=== PATIENT | male | born 1950 | race Asian ===

== ENCOUNTER 2016-08-21 20:25 | Inpatient (IN) | payer SELFPAY ==
[~2016-08-21] VITALS: Ht 177.8 cm; Wt 64.2 kg
[2016-08-21 21:03] LABS: Basophils # (auto) 0 uL; Basophils % (auto) 0.1 % (0.0-2.0); Eosinophils # (auto) 0 uL; Eosinophils % (auto) 0.2 % (0.0-7.0); Hematocrit 36.3 % (41.0-53.0); Hemoglobin 12.3 g/dL (13.5-17.5); Lymphocytes # (auto) 0.7 uL; Lymphocytes % (auto) 6.4 % (10.0-50.0); Mean Corpuscular Hemoglobin 29.6 pg (28.0-32.0); Mean Platelet Volume 8.3 fL (7.4-10.4); Monocytes # (auto) 0.6 uL; Monocytes % (auto) 5.1 % (0.0-12.0); Neutrophils # (auto) 9.8 uL; Neutrophils % (auto) 88.2 % (37.0-80.0); Platelet Count (auto) 236 10^3/uL (140-450); Red Cell Distribution Width 12.4 % (11.6-16.0); White Blood Cell 11.1 10^3/uL (4.4-10.8)
[2016-08-21 21:31] LABS: Albumin 2.3 g/dL (3.4-5.0); BUN/Creatinine Ratio 22.7; Bilirubin, Total 0.6 mg/dL (0.2-1.0); Calcium 8.8 mg/dL (8.5-10.1); Potassium 4.1 mmol/L (3.5-5.1); Total Protein 7.1 g/dL (6.4-8.2)
[2016-08-22] MEDS ORDERED: ONDANSETRON HCL 4 MG/2 ML VIAL ONE (00:57)
[2016-08-22] MEDS ORDERED: SODIUM CHLORIDE 0.9% 1,000 ML IVB ONE (03:44)
[2016-08-22 04:30] LABS: Basophils # (auto) 0 uL; Basophils % (auto) 0.2 % (0.0-2.0); Eosinophils # (auto) 0 uL; Hemoglobin 11.1 g/dL (13.5-17.5); Lymphocytes # (auto) 0.3 uL; Lymphocytes % (auto) 3.6 % (10.0-50.0); Mean Corpuscular Hemoglobin 29.6 pg (28.0-32.0); Mean Corpuscular Hgb Conc. 33.6 g/dL (32.0-36.0); Mean Corpuscular Volume 88.1 fL (80.0-100.0); Mean Platelet Volume 8.7 fL (7.4-10.4); Monocytes # (auto) 0.4 uL; Monocytes % (auto) 3.9 % (0.0-12.0); Neutrophils # (auto) 8.7 uL; Neutrophils % (auto) 92.3 % (37.0-80.0); Platelet Count (auto) 239 10^3/uL (140-450); Red Cell Distribution Width 12.3 % (11.6-16.0); White Blood Cell 9.5 10^3/uL (4.4-10.8)
[2016-08-22 04:50] LABS: INR 0.95 (0.9-1.15); Partial Thromboplastin Time 32.2 sec (22.64-33.71); Prothrombin Time 10.3 sec (9.37-12.3)
[2016-08-22 04:55] LABS: BUN/Creatinine Ratio 28.1
[2016-08-22 04:56] LABS: Bilirubin, Total 0.6 mg/dL (0.2-1.0); Magnesium 2.1 mg/dL (1.6-2.6); Total Protein 6.3 g/dL (6.4-8.2)
[2016-08-22 05:05] LABS: B-Type Natriuretic Peptide 36.67 pg/mL (0-100)
[2016-08-22 05:34] LABS: Temperature: 22.1 C (20.0-25.0)
[2016-08-22 08:19] LABS: Urine Bilirubin Negative (Negative); Urine Color Yellow (Yellow); Urine Ketone Negative (Negative); Urine Nitrite Negative (Negative); Urine RBC 1 /hpf (0 - 3); Urine Squamous Epithelial Cell FEW /hpf (<5); Urine Urobilinogen Normal (Negative)
[2016-08-22 08:20] LABS: Urine Blood 2+ /uL (Negative); Urine Glucose 4+ mg/dL (Normal)
[2016-08-22] MEDS: SODIUM CHLORIDE 0.9% 1,000 ML IV SCH ×2 (08:23→16:12)
[2016-08-22] MEDS ORDERED: ACETAMINOPHEN 500 MG TAB PO PRN (08:30)
[2016-08-22] MEDS ORDERED: NITROGLYCERIN 0.4 MG SL TAB SL PRN (08:30)
[2016-08-22] MEDS ORDERED: LORazepam 0.5 MG TAB PO PRN (08:30)
[2016-08-22] MEDS ORDERED: DEXTROSE (50%) 50ML SYRG IV PRN (08:30)
[2016-08-22] MEDS ORDERED: HYDROcodone-ACET 5/325MG TAB PO PRN (08:30)
[2016-08-22] MEDS ORDERED: cefTRIAXone 1GM/50ML D5W 50 ML IV ONE (08:30)
[2016-08-22] MEDS ORDERED: PANTOPRAZOLE SODIUM 40 MG/10 ML VIAL IV ONE (08:30)
[2016-08-22] MEDS ORDERED: TEMAZEPAM 15 MG CAP PO PRN (08:30)
[2016-08-22] MEDS ORDERED: MORPHINE SULF INJ 2 MG/ML SYRINGE 1ML IV PRN ×2 (08:30)
[2016-08-22] MEDS ORDERED: PROCHLORPERAZINE EDISYLATE 5 MG/ML 2ML VIAL IV PRN (08:30)
[2016-08-22] MEDS: cefTRIAXone 1GM/50ML D5W 50 ML IV SCH (09:27)
[2016-08-22] MEDS: PANTOPRAZOLE 40 MG TAB PO SCH (09:27)
[2016-08-22 09:45] VITALS: BP 183/89
[2016-08-22 10:10] VITALS: BP 183/89
[2016-08-22] MEDS: NITROGLYCERIN 0.2MG/HR TOPICAL PATCH TD SCH (10:17)
[2016-08-22] MEDS: ASPirin 81 mg TAB PO SCH (10:17)
[2016-08-22] MEDS: METOPROLOL TARTRATE 25 MG TAB PO SCH ×2 (10:18→22:06)
[2016-08-22] MEDS: InsuLIN REG 1unit/0.01ml Soln (100units/ml) SC SCH ×3 (12:00→20:19)
[2016-08-22] MEDS: ACCU-CHEK COMFORT CURVE STRIP VI SCH ×3 (12:00→20:18)
[2016-08-22 12:04] LABS: Hematocrit 34.5 % (41.0-53.0); Hemoglobin 11.6 g/dL (13.5-17.5)
[2016-08-22] MEDS: metroNIDAZOLE 500MG/100ML 100 ML IV SCH ×2 (12:36→18:11)
[2016-08-22 16:55] VITALS: BP 147/72
[2016-08-22 18:36] LABS: Hematocrit 34.1 % (41.0-53.0); Hemoglobin 11.4 g/dL (13.5-17.5)
[2016-08-22 22:00] VITALS: BP 146/68
[2016-08-22] MEDS: ATORVASTATIN 20 MG TAB PO SCH (22:05)
[2016-08-23] MEDS: InsuLIN REG 1unit/0.01ml Soln (100units/ml) SC SCH ×6 (00:28→20:39)
[2016-08-23] MEDS: ACCU-CHEK COMFORT CURVE STRIP VI SCH ×6 (00:28→20:35)
[2016-08-23] MEDS: metroNIDAZOLE 500MG/100ML 100 ML IV SCH ×4 (00:30→18:42)
[2016-08-23 01:43] LABS: Hematocrit 33.3 % (41.0-53.0); Hemoglobin 11.2 g/dL (13.5-17.5)
[2016-08-23 05:00] VITALS: BP 139/63
[2016-08-23] MEDS: SODIUM CHLORIDE 0.9% 1,000 ML IV SCH ×3 (05:00→16:43)
[2016-08-23 07:34] LABS: Basophils # (auto) 0 uL; Basophils % (auto) 0.1 % (0.0-2.0); Eosinophils # (auto) 0 uL; Hematocrit 33.4 % (41.0-53.0); Hemoglobin 11.2 g/dL (13.5-17.5); Lymphocytes # (auto) 0.5 uL; Lymphocytes % (auto) 7.1 % (10.0-50.0); Mean Corpuscular Hemoglobin 29.3 pg (28.0-32.0); Mean Corpuscular Hgb Conc. 33.5 g/dL (32.0-36.0); Mean Corpuscular Volume 87.3 fL (80.0-100.0); Mean Platelet Volume 9.4 fL (7.4-10.4); Monocytes # (auto) 0.3 uL; Monocytes % (auto) 3.9 % (0.0-12.0); Neutrophils # (auto) 6.5 uL; Neutrophils % (auto) 88.9 % (37.0-80.0); Platelet Count (auto) 229 10^3/uL (140-450); Red Cell Distribution Width 12.4 % (11.6-16.0); White Blood Cell 7.3 10^3/uL (4.4-10.8)
[2016-08-23 07:35] LABS: Albumin 1.7 g/dL (3.4-5.0); BUN/Creatinine Ratio 20.5; Bilirubin, Total 0.6 mg/dL (0.2-1.0); Calcium 7.5 mg/dL (8.5-10.1); Potassium 3.4 mmol/L (3.5-5.1); Total Protein 5.6 g/dL (6.4-8.2)
[2016-08-23 07:47] VITALS: BP 143/67
[2016-08-23] MEDS: NITROGLYCERIN 0.2MG/HR TOPICAL PATCH TD SCH (10:00)
[2016-08-23] MEDS: cefTRIAXone 1GM/50ML D5W 50 ML IV SCH (10:23)
[2016-08-23] MEDS: ASPirin 81 mg TAB PO SCH (10:42)
[2016-08-23] MEDS: PANTOPRAZOLE 40 MG TAB PO SCH (10:43)
[2016-08-23] MEDS: METOPROLOL TARTRATE 25 MG TAB PO SCH ×2 (10:44→21:42)
[2016-08-23 12:51] VITALS: BP 134/63
[2016-08-23 16:29] VITALS: BP 131/70
[2016-08-23] MEDS ORDERED: ALBUTEROL SULF 2.5 MG/0.5ML(0.5%) NEB SOLN NEB PRN (16:30)
[2016-08-23] MEDS: ALBUTEROL SULF 2.5 MG/0.5ML(0.5%) NEB SOLN NEB SCH (18:59)
[2016-08-23 21:12] VITALS: BP 135/69
[2016-08-23] MEDS: ATORVASTATIN 20 MG TAB PO SCH (21:41)
[2016-08-23] MEDS: FAMOTIDINE 20 MG TAB PO SCH (21:42)
[2016-08-24] VITALS: BP 135/69
[2016-08-24] MEDS: metroNIDAZOLE 500MG/100ML 100 ML IV SCH ×3 (00:18→12:13)
[2016-08-24] MEDS: ACCU-CHEK COMFORT CURVE STRIP VI SCH ×4 (00:18→12:06)
[2016-08-24] MEDS: ALBUTEROL SULF 2.5 MG/0.5ML(0.5%) NEB SOLN NEB SCH ×3 (01:02→12:00)
[2016-08-24] MEDS: InsuLIN REG 1unit/0.01ml Soln (100units/ml) SC SCH ×4 (03:58→12:06)
[2016-08-24] MEDS: SODIUM CHLORIDE 0.9% 1,000 ML IV SCH ×2 (04:00→11:56)
[2016-08-24 05:19] VITALS: BP 146/76
[2016-08-24 06:20] LABS: Basophils # (auto) 0 uL; Basophils % (auto) 0.2 % (0.0-2.0); Eosinophils # (auto) 0 uL; Hematocrit 33.1 % (41.0-53.0); Lymphocytes # (auto) 0.4 uL; Lymphocytes % (auto) 5.8 % (10.0-50.0); Mean Corpuscular Hemoglobin 29.5 pg (28.0-32.0); Mean Corpuscular Hgb Conc. 33.3 g/dL (32.0-36.0); Mean Corpuscular Volume 88.6 fL (80.0-100.0); Mean Platelet Volume 8.6 fL (7.4-10.4); Monocytes # (auto) 0.2 uL; Monocytes % (auto) 2.7 % (0.0-12.0); Neutrophils # (auto) 6.9 uL; Neutrophils % (auto) 91.3 % (37.0-80.0); Platelet Count (auto) 244 10^3/uL (140-450); Red Cell Distribution Width 12.2 % (11.6-16.0); White Blood Cell 7.5 10^3/uL (4.4-10.8)
[2016-08-24] MEDS ORDERED: ADENOSINE 54 MG in GIVE UN-DILUTED 0 ML IV STA (07:50)
[2016-08-24 08:40] VITALS: BP 159/77
[2016-08-24] MEDS ORDERED: AZITHROMYCIN 500MG/D5W 250ML 250 ML IV SCH (10:00)
[2016-08-24] MEDS: cefTRIAXone 1GM/50ML D5W 50 ML IV SCH (11:52)
[2016-08-24] MEDS: METOPROLOL TARTRATE 25 MG TAB PO SCH (12:04)
[2016-08-24] MEDS: ASPirin 81 mg TAB PO SCH (12:04)
[2016-08-24] MEDS: PANTOPRAZOLE 40 MG TAB PO SCH (12:04)
[2016-08-24] MEDS: NITROGLYCERIN 0.2MG/HR TOPICAL PATCH TD SCH (12:05)
[2016-08-24] MEDS: FAMOTIDINE 20 MG TAB PO SCH (12:05)
[2016-08-24 12:52] VITALS: BP 174/78
[2016-08-24] MEDS ORDERED: DEXTROSE (50%) 50ML SYRG IV PRN (14:45)
[2016-08-24] MEDS ORDERED: AMOX-263 PO (15:44)
[2016-08-24] MEDS ORDERED: AZITTAB11 PO ×2 (15:44)
[2016-08-24] MEDS ORDERED: ASPI81CH43 GT (15:44)
[2016-08-24 16:00] VITALS: BP 132/70
[2016-08-24 16:30] VITALS: BP 159/77
[2016-08-24] MEDS ORDERED: ACCU-CHEK COMFORT CURVE STRIP VI SCH (17:00)
[2016-08-24] MEDS ORDERED: InsuLIN REG 1unit/0.01ml Soln (100units/ml) SC SCH ×2 (17:00→22:00)
== END 2016-08-24 16:49 | disposition home or self-care (01) | DRG 193 ==
LOC: ER 20:37 → TELE 20:38 → TELE-EAST 08-22 09:59
PROVIDERS: ADMIT Internal Medicine; ATTEND Internal Medicine
DX: J18.9 Pneumonia, unspecified organism (principal); E43 Unspecified severe protein-calorie malnutrition; E87.1 Hypo-osmolality and hyponatremia; N17.9 Acute kidney failure, unspecified; E11.22 Type 2 diabetes mellitus with diabetic chronic kidney disease; E86.0 Dehydration; H54.8 Legal blindness, as defined in USA; H91.92 Unspecified hearing loss, left ear; E11.65 Type 2 diabetes mellitus with hyperglycemia; I12.9 Hypertensive chronic kidney disease with stage 1 through stage 4 chronic kidney disease, or unspecified chronic kidney disease; E78.5 Hyperlipidemia, unspecified; E11.21 Type 2 diabetes mellitus with diabetic nephropathy; E11.319 Type 2 diabetes mellitus with unspecified diabetic retinopathy without macular edema; N18.9 Chronic kidney disease, unspecified; J06.9 Acute upper respiratory infection, unspecified; Z68.20 Body mass index [BMI] 20.0-20.9, adult; Z83.3 Family history of diabetes mellitus
CPT/HCPCS: 36415; 71010; 71020; 74176; 76775; 78452; 80053; 80061; 81001; 82150; 82550; 82962; 83036; 83605; 83690; 83735; 83880; 84443; 84484; 85014; 85018; 85025; 85045; 85379; 85610; 85652; 85730; 86141; 86850; 86900; 86901; 87040; 87086; 93005; 93017; 93306; 94640; 94761; 96361; 96374; J0153; J0696; J1815; J2405; J3490